=== PATIENT | male | born 1980 | race Asian ===

== ENCOUNTER 2020-03-02 09:00 | Emergency (ER) | payer SELFPAY ==
[2020-03-02] MEDS ORDERED: Lidocaine Viscous Sol 2% 15 ml UD Cup ONE (09:29)
[2020-03-02] MEDS ORDERED: Ketorolac Tromethamine 30 MG/ML VIAL ONE (09:48)
== END 2020-03-02 11:12 | disposition home or self-care (01) ==
LOC: ERS 09:00
DX: T16.1XXA Foreign body in right ear, initial encounter (principal)
CPT/HCPCS: 99282; J1885